=== PATIENT | female | born 1950 | race Caucasian/White ===

== ENCOUNTER → 2017-06-07 16:48 | Outpatient (CLI) | payer MEDICARE ==
[2015-01-24 10:00] VITALS: BMI 31.4
[~2017-06-07 16:48] MED LIST: ARAVA10 MG PO; BENADRYL25 MG IV; BENADRYL25 MG PO; COLACE100 MG PO; CRESTOR10 MG PO; DIFLUCAN150 MG PO; DULCOLAX10 MG/SUPP RC; ELIQUIS2.5 MG PO; FLOVENT HFA 11012 GM INH; GLUCOVANCE 5/501 TAB PO; HYDROCODONE-APA1 TAB PO; KENALOG IN ORABA5 GM TOPICAL; LEVEMIR100 U/M1 SQ; LOW DOSE ASPIRI81 M1 PO; LYRICA75 MG PO; MELOXICAM PO; MIRALAX17 GM PO; MOBIC7.5 MG PO; MS CONTIN15 MG PO; NARCAN IV; NYSTATIN15 GM TOPICAL; ONDANSETRON4 MG/2 M3 IV; OXYCODONE HCL5 MG PO; PAXIL CR37.5 MG PO; PHENERGAN25 M1 PO; PROAIR HFA8.5 GM INH; SENOKOT-S TABLE1 TAB PO; SYNTHROID100 MCG PO; TRADJENTA5 MG PO; VENTOLIN HFA18 GM INH; ZESTRIL20 MG PO
== END | disposition home or self-care (01) ==
LOC: D.MAMMO 15:15
DX: Z12.31 Encounter for screening mammogram for malignant neoplasm of breast (principal)

== ENCOUNTER → 2017-06-22 09:20 | Outpatient (CLI) | payer MEDICARE ==
[2015-01-24 10:00] VITALS: BMI 31.4
== END | disposition home or self-care (01) ==
LOC: D.CT 09:20
DX: R10.9 Unspecified abdominal pain (principal)

== ENCOUNTER → 2019-03-20 10:45 | Outpatient (CLI) | payer MEDICARE ==
[2015-01-24 10:00] VITALS: BMI 31.4
--- NOTE | 2019-03-30 16:41 | ST ---
PATIENT:SUZY YOUNG MEDICAL RECORD: [id number] SEX: F LOCATION:[facility] ORDER #: ADMISSION DATE: 03/20/19 AGE OF PATIENT: 68 REFERRING PHYSICIAN: INTERPRETING PHYSICIAN: AKILA HERNANDEZ MD DATE OF SERVICE: 03/20/2019 INDICATIONS: Angina, hypertension, and shortness of breath. She was exercised on standard Lexiscan protocol with 33 mCi of sestamibi injected at peak stress, 11 mCi used previously for rest images. FINDINGS: Gated SPECT reveals a mildly depressed ejection fraction at 43%. There is mild global hypokinesis; however, preserved brightening throughout all segments. SPECT IMAGING: Cardiolite was used as myocardial fusion agent. There is homogeneous uptake throughout all segments at rest and stress with no evidence of inducible ischemia or previous infarction. OVERALL IMPRESSION: Minimally abnormal nuclear stress test showing a nonischemic cardiomyopathy, ejection fraction 43% but no ongoing ischemic burden. Standard medical management and treatment of the cardiomyopathy. TRANSINT:[id number] Voice Confirmation ID: [id number] DOCUMENT ID: [id number] AKILA HERNANDEZ MD at 1641 CC: ADRIANO HERNANDEZ MD [id number] DICTATION DATE: 03/21/19 1626 CARPET SEWING MACHINE OPERATOR: 03/22/19 0458 DEP CLI 03/20/19 [facility] [address] [place] [address]
== END | disposition home or self-care (01) ==
LOC: D.HCCARDIO 10:45
PROVIDERS: ATTEND Internal Medicine Interventional Cardiology
DX: R07.9 Chest pain, unspecified (principal)

== ENCOUNTER → 2019-03-27 12:57 | Outpatient (CLI) | payer MEDICARE ==
[2015-01-24 10:00] VITALS: BMI 31.4
--- NOTE | ~2019-03-27 | EC ---
PATIENT:SUZY YOUNG DATE OF SERVICE: 03/27/19 SEX: F MEDICAL RECORD: [id number] DATE OF : [birth year] LOCATION:[facility] AGE OF PATIENT: 68 ADMISSION DATE: 03/27/19 REFERRING PHYSICIAN: INTERPRETING PHYSICIAN: ARISTEO BAEZA MD ECHOCARDIOGRAM REPORT ECHO CHARGES 4 ECHO COMPLETE Date: 03/27/19 CLINICAL DIAGNOSIS: MURMUR,EDEMA/ANGINA ECHOCARDIOGRAPHIC MEASUREMENTS (adult normal given) AC root (d.<3.7cm) 3.7 cm LV Septum d (<1.2 cm> 1.4 cm Valve Excursion 1.5 cm LV Septum (systole) 1.6 cm Left Atria (s.<4.0cm> 4.2 cm LVPW d(<1.2cm) 1.6 cm RV (d.<2.3cm) 3.3 cm LVPW (sytole) 1.8 cm LV diastole(<5.6CM) 4.5 cm MV E-F(>70mm/sec) cm LV systole 3.1 cm LVOT Diameter 2.0 cm MV exc.(>10mm) 1.1 cm Est.ejection fraction (50-75%) % DOPPLER: LVIT cm/sec A 66.0 cm/sec E 78.0 cm/sec LA cm/sec RVSP 32 mmHg LVOT 122 cm/sec AOP1/2T m/s Asc. Ao 180 cm/sec RVOT 82 cm/sec RA cm/sec PA 93 cm/sec AV Gradient Peak 12.92mmHg AV Mean 7.09 mmHg AV Area 2.3 cm MV Gradient Peak 2.90 mmHg MV Mean 1.05 mmHg MV Area cm COMMENTS: Clinical Data Coordinator: Huey SHEEHAN Dock Guard: 3 Dr. Enciso TAPE# PACS Pericardial Effusion N DATE OF SERVICE: 03/27/2019 Adequate 2-D echo, color-flow and spectral Doppler, and M-mode. Mild LVH. LV internal dimensions are normal. Wall motion is normal. EF is greater than 55%. Aortic valve is tricuspid. No evidence of stenosis by Doppler interrogation. Left atrium is minimally dilated at 4.2 cm. Mitral valve shows no prolapse. Trace MR. Right-sided chambers are grossly normal. Mild TR. ECHOCARDIOGRAM REPORT [id number] SUZY YOUNG TRANSINT:[id number] Voice Confirmation ID: [id number] DOCUMENT ID: [id number] ARISTEO BAEZA MD CC: [id number] DICTATION DATE: 03/27/19 1548 SENIOR PRODUCT INTEGRITY ENGINEER: 03/27/19 1800 DEP CLI 03/27/19 [place] [id number] [place] [id number]
== END | disposition home or self-care (01) ==
LOC: D.HCCARDIO 12:57
PROVIDERS: ATTEND Internal Medicine Interventional Cardiology
DX: R01.1 Cardiac murmur, unspecified (principal)

== ENCOUNTER 2019-09-27 09:00 | Outpatient (CLI) | payer MEDICARE ==
[2015-01-24 10:00] VITALS: BMI 31.4
== END 2019-09-27 10:00 | disposition home or self-care (01) ==
LOC: D.MAMMO 09:00
PROVIDERS: ATTEND Family Medicine
DX: Z12.31 Encounter for screening mammogram for malignant neoplasm of breast (principal)